=== PATIENT | female | born 1990 | race Caucasian/White ===

== ENCOUNTER 2017-03-13 19:00 | Emergency (ER) | payer SELFPAY ==
[2017-03-13 19:00] VITALS: BMI 18.9
[2017-03-13 19:15] VITALS: BP 128/63; PULSE 74; RESP 16; TEMP 98.2; O2SAT 100
--- NOTE | 2017-03-13 19:32 | ED PDOC ---
HPI: General Adult Time Seen by Provider: 03/13/17 19:20 Chief Complaint (Nursing): Anxiety Chief Complaint (Provider): Chest pain History Per: Patient History/Exam Limitations: no limitations Onset/Duration Of Symptoms: Days Current Symptoms Are (Timing): Still Present Additional Complaint(s): 27 y/o female presents to the emergency department with a complaint of a chest pain, palpitations, headache, and shakiness for a couple of days. Patient states she visited [facility] on 03/08/2017, was diagnosed with a urinary tract infection, and prescribed antibiotics. Past Medical History Reviewed: Historical Data, Nursing Documentation, Vital Signs Vital Signs: Last Vital Signs Temp 98.2 F 03/13/17 19:10 Pulse 74 03/13/17 19:10 Resp 16 03/13/17 19:10 BP 128/63 03/13/17 19:10 Pulse Ox 100 03/13/17 20:26 - Medical History PMH: Gastritis Denies: Chronic Kidney Disease - Surgical History Surgical History: No Surg Hx - Family History Family History: States: Unknown Family Hx - Social History Current smoker - smoking cessation education provided: No Alcohol: None Drugs: Denies - Immunization History Hx Tetanus Toxoid Vaccination: No Hx Influenza Vaccination: No Hx Pneumococcal Vaccination: No - Home Medications Home Medications: Ambulatory Orders Medication Instructions Recorded Ciprofloxacin [Cipro] 1 tab PO BID #14 tab 03/09/17 Lorazepam [Ativan] 0.5 mg PO Q8 PRN #10 tab 03/13/17 - Allergies Allergies/Adverse Reactions: Allergies Allergy/AdvReac Type Severity Reaction Status Date / Time No Known Allergies Allergy Verified 12/08/16 10:12 Review of Systems ROS Statement: Except As Marked, All Systems Reviewed And Found Negative Constitutional: Positive for: Other (Shakiness) Cardiovascular: Positive for: Chest Pain, Palpitations Neurological: Positive for: Headache Physical Exam - Reviewed Nursing Documentation Reviewed: Yes Vital Signs Reviewed: Yes - Physical Exam Appears: Positive for: Non-toxic, No Acute Distress Head Exam: Positive for: ATRAUMATIC, NORMOCEPHALIC Skin: Positive for: Normal Color, Warm, Dry Neck: Positive for: Normal, Supple Gastrointestinal/Abdominal: Positive for: Normal Exam, Soft. Negative for: Tenderness Extremity: Positive for: Normal ROM. Negative for: Pedal Edema Neurologic/Psych: Positive for: Alert, Oriented - Laboratory Results Result Diagrams: 03/13/17 20:25 03/13/17 20:25 - ECG O2 Sat by Pulse Oximetry: 100 (RA) Pulse Ox Interpretation: Normal Medical Decision Making Medical Decision Making: Time: 19:20 Initial Impression: Chest Pain Initial Plan: --COMP Metabolic Panel --Troponin I Stat --CBC stat --D Dimer (COAG) --Chest Two Views (PA/LAT) (RAD) --Ativan 1 mg PO --Revaluation Pt reports feeling better on re-evaluation. Denies chest pain, denies palpitations. Discussed f/u with PMD. Scribe Attestation: Documented by Karma Cordero, acting as a scribe for Kate Rodriguez PA-C. Provider Scribe Attestation: All medical record entries made by the Scribe were at my direction and personally dictated by me. I have reviewed the chart and agree that the record accurately reflects my personal performance of the history, physical exam, medical decision making, and the department course for this patient. I have also personally directed, reviewed, and agree with the discharge instructions and disposition. Disposition - Clinical Impression Clinical Impression: Anxiety - Patient ED Disposition Is Patient to be Admitted: No Counseled Patient/Family Regarding: Diagnosis, Need For Followup, Rx Given - Disposition Referrals: [facility] [Outside] Disposition: Routine/Home Disposition Time: 22:25 Condition: GOOD Prescriptions: Lorazepam [Ativan] 0.5 mg PO Q8 PRN #10 tab PRN Reason: Anxiety Instructions: Anxiety (ED) Print Language: MACEDONIAN
[2017-03-13 20:47] LABS: HEMATOCRIT 34.2 % (34.0-47.0); MEAN CELL VOLUME 93.8 fl (81.0-99.0); MEAN CORPUSCULAR HEMOGLOBIN 31.6 pg (27.0-31.0); MEAN CORPUSCULAR HGB CONC 33.7 g/dL (33.0-37.0); RED CELL DISTRIBUTION WIDTH 12.6 % (11.5-14.5); WHITE BLOOD COUNT 6.3 K/uL (4.8-10.8)
[2017-03-13 20:57] LABS: ALB/GLOB RATIO 1.4 (1.0-2.1); ALKALINE PHOSPHATASE 61 U/L (38-126); ALT/SGPT 41 U/L (9-52); AST/SGOT 27 U/L (14-36); BILIRUBIN,TOTAL 0.3 mg/dl (0.2-1.3); BLOOD UREA NITROGEN 14 mg/dl (7-17); CARBON DIOXIDE 27 mmol/L (22-30); CHLORIDE 104 mmol/L (98-107); GFR AFRICAN-AMERICAN > 60; GLUCOSE,RANDOM 105 mg/dL (65-105); POTASSIUM 3.7 MMOL/L (3.6-5.0); SODIUM 140 mmol/l (132-148); TOTAL PROTEIN 6.9 G/DL (6.3-8.2)
--- NOTE | 2017-03-14 09:34 | RAD ---
HISTORY: left sided chest pain COMPARISON: No prior. TECHNIQUE: Chest PA and lateral FINDINGS: LUNGS: No active pulmonary disease. PLEURA: No significant pleural effusion identified. No pneumothorax apparent. CARDIOVASCULAR: Normal. OSSEOUS STRUCTURES: No significant abnormalities. VISUALIZED UPPER ABDOMEN: Normal. OTHER FINDINGS: None. IMPRESSION: No active disease.
--- NOTE | 2017-03-15 16:40 | CARD ---
APPROVED REPORT EKG Measurement Heart [id number] <Conclusion> Normal sinus rhythm Incomplete right bundle branch block Borderline ECG
== END 2017-03-13 23:30 | disposition home or self-care (01) ==
LOC: H.ER 19:00
DX: F41.9 Anxiety disorder, unspecified (principal); R00.2 Palpitations; R07.89 Other chest pain; R42 Dizziness and giddiness

== ENCOUNTER 2017-11-14 20:15 | Emergency (ER) | payer OTHER, SELFPAY ==
[2017-11-14 21:24] VITALS: BMI 21.5
[2017-11-14 21:26] VITALS: BP 113/60; PULSE 68; RESP 16; TEMP 97.8; O2SAT 100
--- NOTE | 2017-11-14 22:16 | ED PDOC ---
HPI: Headache Time Seen by Provider: 11/14/17 21:49 Chief Complaint (Nursing): Headache Chief Complaint (Provider): headache History Per: Patient, Covered Button Maker History/Exam Limitations: no limitations Onset/Duration Of Symptoms: Days (1 week), Waxing/Waning Current Symptoms Are (Timing): Still Present Additional History Per: Patient Additional Complaint(s): 27 y/o female presents with intermittent right-sided headaches x 1 week. Denies fever, neck pain, nasal congestion/discharge, nausea/vomiting, cough, chest pain, shortness of breath, palpitations, changes in bowel movements, recent travel, sick contacts. No medications taken for pain relief thus far. Past Medical History Reviewed: Historical Data, Nursing Documentation, Vital Signs Vital Signs: Last Vital Signs Temp 97.8 F 11/14/17 21:24 Pulse 68 11/14/17 21:24 Resp 16 11/14/17 21:24 BP 113/60 11/14/17 21:24 Pulse Ox 100 11/14/17 21:24 - Medical History PMH: Gastritis Denies: Chronic Kidney Disease Other PMH: H. Pylori - Surgical History Surgical History: No Surg Hx - Family History Family History: States: Unknown Family Hx - Immunization History Hx Tetanus Toxoid Vaccination: No Hx Influenza Vaccination: No Hx Pneumococcal Vaccination: No - Home Medications Home Medications: Ambulatory Orders Medication Instructions Recorded Ciprofloxacin [Cipro] 1 tab PO BID #14 tab 03/09/17 Lorazepam [Ativan] 0.5 mg PO Q8 PRN #10 tab 03/13/17 Ibuprofen [Motrin Tab] 1 tab PO Q6 PRN #20 tab 11/14/17 - Allergies Allergies/Adverse Reactions: Allergies Allergy/AdvReac Type Severity Reaction Status Date / Time No Known Allergies Allergy Verified 11/14/17 21:23 Review of Systems ROS Statement: Except As Marked, All Systems Reviewed And Found Negative Neurological: Positive for: Headache Physical Exam - Reviewed Nursing Documentation Reviewed: Yes Vital Signs Reviewed: Yes - Physical Exam Appears: Positive for: Well, Non-toxic, No Acute Distress Head Exam: Positive for: ATRAUMATIC, NORMAL INSPECTION, NORMOCEPHALIC Skin: Positive for: Normal Color Eye Exam: Positive for: Normal appearance ENT: Positive for: Normal ENT Inspection Cardiovascular/Chest: Positive for: Regular Rate, Rhythm Respiratory: Positive for: Normal Breath Sounds Gastrointestinal/Abdominal: Positive for: Normal Exam Back: Positive for: Normal Inspection Extremity: Positive for: Normal ROM Neurologic/Psych: Positive for: Alert, Oriented - ECG O2 Sat by Pulse Oximetry: 100 - Progress ED Course And Treament: Toradol IM On re-eval, patient states headache resolved. Vitals stable. No neuro deficits. Patient educated on findings, discharged with rx Ibuprofen. Advised follow up PMD 2-3 days. Return precautions given. Disposition - Clinical Impression Clinical Impression: Headache - Patient ED Disposition Is Patient to be Admitted: No Counseled Patient/Family Regarding: Diagnosis, Need For Followup, Rx Given - Disposition Disposition: Routine/Home Disposition Time: 23:36 Condition: IMPROVED Prescriptions: Ibuprofen [Motrin Tab] 1 tab PO Q6 PRN #20 tab PRN Reason: Pain, Moderate (4-7) Instructions: Acute Headache (ED) Forms: [employer] ([place] Citizen) Print Language: CYMRO
== END 2017-11-14 23:47 | disposition home or self-care (01) ==
LOC: H.ER 20:15
DX: R51 Headache (principal)
CPT/HCPCS: 81025; 96372; 99284; J1885

== ENCOUNTER 2018-05-06 12:11 | Emergency (ER) | payer OTHER, SELFPAY ==
[2018-05-06 12:12] VITALS: BMI 21.5
[2018-05-06 12:28] VITALS: TEMP 98.2
--- NOTE | 2018-05-06 13:15 | ED PDOC ---
HPI: Headache Time Seen by Provider: 05/06/18 12:26 Chief Complaint (Nursing): Headache Chief Complaint (Provider): Headache, sore throat, jittery History Per: Patient, Repeater Chief ([id number]) Additional Complaint(s): 28 yo, no PMH, presents to ED with numerous complaints. Pt appears anxious and notes she has headache, dizziness, sore throat at times, "a mass in my throat causing me to have difficulty breathing," and feeling jittery. Pt reports that she has had all symptoms for years and she last saw an eye doctor 6 months ago who advised her to get her thyroid checked. Past Medical History Reviewed: Nursing Documentation, Vital Signs Vital Signs: Last Vital Signs Temp 98.2 F 05/06/18 12:26 Pulse 65 05/06/18 12:26 Resp 18 05/06/18 12:26 BP 147/63 05/06/18 12:26 Pulse Ox 100 05/06/18 12:26 - Medical History PMH: Gastritis, Kidney Stones Denies: Chronic Kidney Disease - Surgical History Surgical History: No Surg Hx - Family History Family History: States: No Known Family Hx - Living Arrangements Living Arrangements: With Family - Immunization History Hx Tetanus Toxoid Vaccination: No Hx Influenza Vaccination: No Hx Pneumococcal Vaccination: No - Home Medications Home Medications: Ambulatory Orders Medication Instructions Recorded Nitrofurantoin Macrocrystals 1 cap PO BID #14 cap 02/21/18 [Macrobid] Alprazolam [Xanax] 0.25 mg PO HS #10 tab 05/06/18 - Allergies Allergies/Adverse Reactions: Allergies Allergy/AdvReac Type Severity Reaction Status Date / Time No Known Allergies Allergy Verified 05/06/18 12:26 Review of Systems ROS Statement: Except As Marked, All Systems Reviewed And Found Negative ENT: Positive for: Throat Pain Neurological: Positive for: Headache Physical Exam - Reviewed Nursing Documentation Reviewed: Yes Vital Signs Reviewed: Yes - Physical Exam Appears: Positive for: Well, Non-toxic, No Acute Distress Head Exam: Positive for: ATRAUMATIC, NORMAL INSPECTION, NORMOCEPHALIC Skin: Positive for: Normal Color, Warm, DRY Eye Exam: Positive for: EOMI, Normal appearance, PERRL ENT: Positive for: Normal ENT Inspection Neck: Positive for: Normal, Painless ROM Cardiovascular/Chest: Positive for: Regular Rate, Rhythm Respiratory: Positive for: CNT, Normal Breath Sounds Gastrointestinal/Abdominal: Positive for: Normal Exam, Soft Back: Positive for: Normal Inspection Extremity: Positive for: Normal ROM Neurologic/Psych: Positive for: Alert, Oriented - Laboratory Results Result Diagrams: 05/06/18 13:57 05/06/18 13:57 - ECG O2 Sat by Pulse Oximetry: 100 Medical Decision Making Medical Decision Making: Repeater Chief [id number] Diagnostics ordered. Pt reports feeling improved after all results were discussed to be normal Pt appears anxious and was offered crisis eval, however declined. Pt denies any HI or SI. Pt made an appointment with [facility] for 05/11 at 11 am Disposition - Clinical Impression Clinical Impression: Headache, Anxiety, Globus sensation - Patient ED Disposition Is Patient to be Admitted: No - Disposition Disposition: Routine/Home Disposition Time: 15:53 Condition: STABLE Prescriptions: Alprazolam [Xanax] 0.25 mg PO HS #10 tab Instructions: Headache, Adult, Anxiety, Adult (DC) Forms: [employer] (Maltese) Print Language: ROMANSH
[2018-05-06 14:01] LABS: BASO % 0.9 % (0.0-2.0); EOS # 0.2 K/uL (0.0-0.7); EOS % 3.8 % (0.0-4.0); HEMOGLOBIN 12.2 g/dL (12.0-16.0); LYMPH # 2.1 K/uL (1.0-4.3); LYMPH % 37.2 % (20.0-40.0); MEAN CORPUSCULAR HEMOGLOBIN 32.9 pg (27.0-31.0); MEAN CORPUSCULAR HGB CONC 34.6 g/dL (33.0-37.0); MEAN PLATELET VOLUME 7.1 fl (7.2-11.7); MONO # 0.4 K/uL (0.0-0.8); MONO % 7.1 % (0.0-10.0); NEUT # 2.9 K/uL (1.8-7.0); RBC 3.71 Mil/uL (3.80-5.20); RED CELL DISTRIBUTION WIDTH 12.8 % (11.5-14.5); WHITE BLOOD COUNT 5.6 K/uL (4.8-10.8)
[2018-05-06 14:14] LABS: ALB/GLOB RATIO 1.3 (1.0-2.1); ALBUMIN 4.3 g/dL (3.5-5.0); ALT/SGPT 24 U/L (9-52); AST/SGOT 35 U/L (14-36); BLOOD UREA NITROGEN 11 mg/dl (7-17); CALCIUM 9.5 mg/dL (8.4-10.2); GFR NON-AFRICAN AMERICAN > 60
[2018-05-06 15:47] VITALS: BP 129/58; PULSE 72; RESP 16
[2018-05-06 15:48] VITALS: O2SAT 100
== END 2018-05-06 15:49 | disposition home or self-care (01) ==
LOC: H.ER 12:11
DX: R51 Headache (principal); F41.9 Anxiety disorder, unspecified; F45.8 Other somatoform disorders; Z87.442 Personal history of urinary calculi
CPT/HCPCS: 80053; 81025; 84443; 85025; 96374; 99283; J1885

== ENCOUNTER 2018-08-07 04:43 | Emergency (ER) | payer OTHER, SELFPAY ==
[2018-08-07 04:57] VITALS: BMI 19.6
--- NOTE | 2018-08-07 05:26 | ED PDOC ---
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 Reports she came to ED directly without taking any meds. Denies dysuria, hematuria, frequency, vaginal bleeding, trauma, N/V/D, previous abdominal aditya geries. Last BM was yesterday and was normal. Last Menstral Period: 07/30/2018 <Toy Wesley - Last Filed: 08/07/18 05:23> <Richie Lopez - Last Filed: 08/07/18 06:19> Time Seen by Provider: 08/07/18 04:58 Chief Complaint (Nursing): Abdominal Pain Past Medical History Reviewed: Historical Data, Nursing Documentation, Vital Signs Vital Signs: Last Vital Signs Temp 97.6 F 08/07/18 04:57 Pulse 86 08/07/18 04:57 Resp 18 08/07/18 04:57 BP 105/68 08/07/18 04:57 Pulse Ox 97 08/07/18 04:57 - Medical History PMH: Gastritis, Kidney Stones Other PMH: R ovarian cyst - Surgical History Surgical History: No Surg Hx - Family History Family History: States: No Known Family Hx - Immunization History Hx Tetanus Toxoid Vaccination: No Hx Influenza Vaccination: No Hx Pneumococcal Vaccination: No <Toy Wesley - Last Filed: 08/07/18 05:23> Vital Signs: Last Vital Signs Temp 97.6 F 08/07/18 04:57 Pulse 86 08/07/18 04:57 Resp 18 08/07/18 04:57 BP 105/68 08/07/18 04:57 Pulse Ox 97 08/07/18 05:28 <Richie Lopez - Last Filed: 08/07/18 06:19> - Home Medications Home Medications: Ambulatory Orders Medication Instructions Recorded Acetaminophen/Butalbital/Caf 1 tab PO TID PRN #20 tab 05/09/18 [Fioricet] Naproxen [Naprosyn] 500 mg PO BID #20 tab 05/09/18 Ranitidine HCl [Zantac] 150 mg PO BID #14 tablet 05/19/18 - Allergies Allergies/Adverse Reactions: Allergies Allergy/AdvReac Type Severity Reaction Status Date / Time No Known Allergies Allergy Verified 08/07/18 04:57 Review of Systems ROS Statement: Except As Marked, All Systems Reviewed And Found Negative Genitourinary Female: Positive for: Pelvic Pain <Toy Wesley - Last Filed: 08/07/18 05:23> Physical Exam - Physical Exam Appears: Positive for: Well, Non-toxic, No Acute Distress Skin: Positive for: Normal Color, Warm. Negative for: Rash Eye Exam: Positive for: Normal appearance Cardiovascular/Chest: Positive for: Regular Rate, Rhythm Respiratory: Positive for: Normal Breath Sounds Gastrointestinal/Abdominal: Positive for: Normal Exam, Soft, Tenderness (suprapubic tenderness ). Negative for: Mass (including pelvis), Guarding Back: Positive for: Normal Inspection. Negative for: L CVA Tenderness, R CVA Tenderness Neurologic/Psych: Positive for: Alert, Oriented (x3). Negative for: Aphasia, Facial Droop <Toy Wesley - Last Filed: 08/07/18 05:23> - ECG O2 Sat by Pulse Oximetry: 97 - Progress ED Course And Treament: Labs, toradol 30mg IV, TVUS ordered. <Toy Wesley - Last Filed: 08/07/18 05:23> - Laboratory Results Result Diagrams: 08/07/18 05:30 08/07/18 05:30 <Richie Lopez - Last Filed: 08/07/18 06:19> Medical Decision Making Medical Decision Making: Time: 07:00 --Patient care endorsed from provider to Dr. Vazquez pending US and reevaluation. <Richie Lopez - Last Filed: 08/07/18 06:19> Disposition - Patient ED Disposition Is Patient to be Admitted: Transfer of Care (Dr. Lopez continued care at the end of my shift.) - Disposition Disposition Time: 06:00 <Toy Wesley - Last Filed: 08/07/18 05:23> <Richie Lopez - Last Filed: 08/07/18 06:19> - Clinical Impression Clinical Impression: Pelvic pain - Disposition Condition: STABLE Forms: [employer] (Romansh)
[2018-08-07 05:44] LABS: BASO % 0.6 % (0.0-2.0); EOS # 0.2 K/uL (0.0-0.7); EOS % 2.7 % (0.0-4.0); HEMOGLOBIN 12.4 g/dL (12.0-16.0); LYMPH % 26.2 % (20.0-40.0); MEAN CELL VOLUME 94.8 fl (81.0-99.0); MEAN CORPUSCULAR HEMOGLOBIN 33.8 pg (27.0-31.0); MEAN CORPUSCULAR HGB CONC 35.6 g/dL (33.0-37.0); MEAN PLATELET VOLUME 6.6 fl (7.2-11.7); MONO # 0.5 K/uL (0.0-0.8); MONO % 6.5 % (0.0-10.0); RBC 3.66 Mil/uL (3.80-5.20); WHITE BLOOD COUNT 7.8 K/uL (4.8-10.8)
[2018-08-07 06:09] LABS: ALB/GLOB RATIO 1.1 (1.0-2.1); ALBUMIN 4.1 g/dL (3.5-5.0); ALT/SGPT 18 U/L (9-52); AST/SGOT 26 U/L (14-36); BLOOD UREA NITROGEN 17 mg/dl (7-17); CALCIUM 8.9 mg/dL (8.4-10.2); GFR NON-AFRICAN AMERICAN > 60
--- NOTE | 2018-08-07 07:07 | ED PDOC ---
- Laboratory Results Result Diagrams: 08/07/18 05:30 08/07/18 05:30 - ECG O2 Sat by Pulse Oximetry: 97 (RA) Pulse Ox Interpretation: Normal Medical Decision Making Medical Decision Makinam pending US pelvis Time: 09:05 Results were explained to patient via water rights specialist [id number]. Patient states she feels better. UA shows patient to have a small UTI. Patient reveals to have been experiencing dysuria for several days. Provider will therefore treat with Cipro and instructed patient to follow up with metal pattern maker. On reexamination the abdomen is non tender. Scribe Attestation: Documented by Abdiel Terrell, acting as a scribe for Leonard Vazquez III, DO. Provider Scribe Attestation: All medical record entries made by the Scribe were at my direction and p ersonally dictated by me. I have reviewed the chart and agree that the record accurately reflects my personal performance of the history, physical exam, medical decision making, and the department course for this patient. I have also personally directed, reviewed, and agree with the discharge instructions and disposition. Disposition - Clinical Impression Clinical Impression: Pelvic pain, UTI (urinary tract infection) - POA Present On Arrival: None - Disposition Referrals: [facility] [Outside] Disposition: Routine/Home Disposition Time: 09:00 Condition: STABLE Additional Instructions: Followup with SALESPERSON FURNITURE in 1-2 weeks, return to ER for any new or worsening pain. Prescriptions: Ciprofloxacin [Cipro] 500 mg PO BID #10 tab Naproxen [Naprosyn] 500 mg PO BID PRN #14 tablet PRN Reason: Pain, Moderate (4-7) Instructions: Urinary Tract Infections in Adults, Acute Pelvic Pain Forms: 5 CUPS and some sugar (Armenian) Print Language: YORUBA
[2018-08-07 08:02] VITALS: PULSE 80; RESP 19; TEMP 97
[2018-08-07 08:41] LABS: SQUAMOUS EPITHIAL 3 /hpf (0-5); URINE BILIRUBIN NEGATIVE (NEGATIVE); URINE BLOOD NEGATIVE (NEGATIVE); URINE CLARITY SLIGHTY-CLOUDY (Clear); URINE COLOR YELLOW (YELLOW); URINE GLUCOSE (UA) NEG (Normal); URINE LEUKOCYTE ESTERASE SMALL Leu/uL (Negative); URINE PROTEIN NEGATIVE (NEGATIVE); URINE UROBILINOGEN 0.2-1.0 mg/dL (0.2-1.0)
[2018-08-07 09:09] VITALS: BP 120/70
[2018-08-07 09:11] VITALS: O2SAT 97
--- NOTE | 2018-08-07 14:09 | US ---
Date of service: 08/07/2018 HISTORY: suprapubic pain COMPARISON: None available. TECHNIQUE: Transvaginal ultrasound was performed including occasional color Doppler ultrasonography with images submitted in transverse and longitudinal projections. FINDINGS: UTERUS: Measures 7.4 x 5.0 x 3.8 cm. Normal in size and appearance. No fibroid or other mass lesion seen. ENDOMETRIUM: Measures 5.0 mm in diameter. Unremarkable. CERVIX: Two nabothian cyst identified in the cervix anteriorly as well as posteriorly with cervix otherwise unremarkable appearing. RIGHT OVARY: Measures 3.3 x 3.3 x 2.1 cm. No solid mass. Normal flow. Small cysts are identified which may represent developing follicles. LEFT OVARY: Measures 3.4 x 2.3 x 2.4 cm. No solid mass. Normal flow. Small cysts are identified which may represent developing follicles. FREE FLUID: Trace cul-de-sac fluid is appreciate which is felt to represent physiologic volume. OTHER FINDINGS: None. IMPRESSION: Other than nabothian cysts of the cervix, the remainder the transvaginal pelvic ultrasound exam is unremarkable including the uterus, bilateral adnexal compartments.
== END 2018-08-07 09:10 | disposition home or self-care (01) ==
LOC: H.ER 04:43
DX: N39.0 Urinary tract infection, site not specified (principal); R10.2 Pelvic and perineal pain; Z87.442 Personal history of urinary calculi
CPT/HCPCS: 76830; 80053; 81003; 81025; 85025; 96374; 99283; J1885